=== PATIENT | female | born 1960 | race Asian ===

== ENCOUNTER 2017-01-21 01:29 | Emergency (ER) | payer SELFPAY ==
[2017-01-21 01:51] VITALS: BP 150/97
[2017-01-21 02:11] LABS: APPEARANCE,URINE SLIGHTLY-CLOUDY; BILIRUBIN,URINE NEGATIVE (NEGATIVE); GLUCOSE, URINE NEGATIVE (NEGATIVE); KETONES,URINE NEGATIVE (NEGATIVE); LEUKOCYTE ESTERASE,URINE LARGE (NEGATIVE); NITRITE,URINE NEGATIVE (NEGATIVE); PROTEIN,URINE NEGATIVE (NEGATIVE); URINE SPECIFIC GRAVITY 1.021
[2017-01-21 02:17] LABS: WBC,URINE 50-100 /HPF
[2017-01-21 02:18] LABS: BACTERIA,URINE 3+ /HPF
[2017-01-21] MEDS ORDERED: ONDANSETRON 4 MG TAB.RAPDIS PO ONE (03:20)
[2017-01-21] MEDS ORDERED: OXYCODONE-ACETAMINOPHEN 5-325 MG TABLET PO ONE (03:20)
--- NOTE | 2017-01-21 03:22 | ER Document Report ---
ED Medical Screen (RME) - General Chief Complaint: Flank Pain Stated Complaint: FLANK PAIN Time Seen by Provider: 01/21/17 03:08 Notes: 56-year-old female, chief complaint of left flank pain for the past 3 days, states pain is sharp and radiates around to her left abdomen, she cannot sleep. She denies nausea or vomiting, fever or chills. She does have a history of kidney stones. Only other past medical history reported is anemia and hypertension. She denies injury. TRAVEL OUTSIDE OF THE [place] IN LAST 30 DAYS: No - Related Data Allergies/Adverse Reactions: No Known Allergies Allergy (Unverified 01/21/17 03:08) Past Medical History Renal/ Medical History: Denies: Hx Peritoneal Dialysis Physical Exam - Vital signs Vitals: Temp Pulse Resp BP Pulse Ox 97.8 F 85 16 150/97 H 97 01/21/17 01:50 01/21/17 01:50 01/21/17 01:50 01/21/17 01:50 01/21/17 01:50 - Back Back: CVA tenderness - Left side only Course - Vital Signs Vital signs: Temp Pulse Resp BP Pulse Ox 97.8 F 85 16 150/97 H 97 01/21/17 01:50 01/21/17 01:50 01/21/17 01:50 01/21/17 01:50 01/21/17 01:50 - Laboratory Laboratory results interpreted by me: 01/21/17 01:46 Urine Blood SMALL H Urine Urobilinogen 2.0 H Ur Leukocyte Esterase LARGE H
[2017-01-21 03:45] LABS: ABSOLUTE BASOPHILS # (AUTO) 0.1 10^3/uL (0.0-0.2); ABSOLUTE EOSINOPHILS # (AUTO) 0.2 10^3/uL (0.0-0.6); ABSOLUTE MONOCYTES (AUTO) 0.6 10^3/uL (0.1-1.4); ABSOLUTE NEUT (AUTO) 4.8 10^3/uL (1.7-8.2); EOSINOPHILS % (AUTO) 3.1 % (0-6); HEMATOCRIT 39.5 % (36.0-47.0); HEMOGLOBIN 13.7 g/dL (12.0-15.5); HGB HCT DIFFERENCE 1.6; LYMPHOCYTES % (AUTO) 25.7 % (13-45); MEAN CORPUSCULAR HEMOGLOBIN 31.6 pg (27.0-33.4); MEAN CORPUSCULAR HGB CONC 34.8 g/dL (32.0-36.0); MEAN CORPUSCULAR VOLUME 91 fl (80-97); MONOCYTES % (AUTO) 7.5 % (3-13); RED BLOOD COUNT 4.35 10^6/uL (3.72-5.28); RED CELL DISTRIBUTION WIDTH 12.9 % (11.5-14.0); SEGMENTED NEUTROPHILS % (AUTO) 62.7 % (42-78); WHITE BLOOD COUNT 7.7 10^3/uL (4.0-10.5)
[2017-01-21 04:04] LABS: ALANINE AMINOTRANSFERASE 33 U/L (9-52); ALBUMIN 4.7 g/dL (3.5-5.0); ALKALINE PHOSPHATASE 73 U/L (38-126); ANION GAP 15 (5-19); ASPARTATE AMINO TRANSFERASE 26 U/L (14-36); BILIRUBIN,DIRECT 0.3 mg/dL (0.0-0.4); BILIRUBIN,TOTAL 0.5 mg/dL (0.2-1.3); BLOOD UREA NITROGEN 26 mg/dL (7-20); CARBON DIOXIDE 22 mmol/L (22-30); CHLORIDE 106 mmol/L (98-107); CREATININE RESULT 1.03 mg/dL (0.52-1.25); GLUCOSE 111 mg/dL (75-110); POTASSIUM 3.9 mmol/L (3.6-5.0); TOTAL PROTEIN 8.3 g/dL (6.3-8.2)
--- NOTE | 2017-01-21 04:38 | ER Document Report ---
ED GI/ - General Chief Complaint: Flank Pain Stated Complaint: FLANK PAIN Time Seen by Provider: 01/21/17 03:08 Notes: Patient is a 56-year-old female, chief complaint of left flank pain for the past 3 days, states pain is sharp and radiates around to her left abdomen, she cannot sleep. She denies nausea or vomiting, fever or chills. She does have a history of kidney stones. Only other past medical history reported is anemia and hypertension. She denies injury. TRAVEL OUTSIDE OF THE [place] IN LAST 30 DAYS: No - Related Data Allergies/Adverse Reactions: No Known Allergies Allergy (Unverified 01/21/17 03:08) Past Medical History - General Information source: Patient - Social History Smoking Status: Never Smoker Frequency of alcohol use: None Drug Abuse: None Lives with: Family Family History: Reviewed & Not Pertinent Patient has suicidal ideation: No Patient has homicidal ideation: No - Past Medical History Cardiac Medical History: Reports: Hx Hypertension Renal/ Medical History: Denies: Hx Peritoneal Dialysis - Immunizations Hx Diphtheria, Pertussis, Tetanus Vaccination: Yes Review of Systems - Review of Systems Constitutional: No symptoms reported EENT: No symptoms reported Cardiovascular: No symptoms reported Respiratory: No symptoms reported Gastrointestinal: See HPI Genitourinary: See HPI Female Genitourinary: No symptoms reported Musculoskeletal: No symptoms reported Skin: No symptoms reported Hematologic/Lymphatic: No symptoms reported Neurological/Psychological: No symptoms reported Physical Exam - Vital signs Vitals: Temp Pulse Resp BP Pulse Ox 97.8 F 85 16 150/97 H 97 01/21/17 01:50 01/21/17 01:50 01/21/17 01:50 01/21/17 01:50 01/21/17 01:50 Interpretation: Normal - General General appearance: Appears well, Alert In distress: None - HEENT Head: Normocephalic, Atraumatic Eyes: Normal Pupils: PERRL - Respiratory Respiratory status: No respiratory distress Chest status: Nontender Breath sounds: Normal Chest palpation: Normal - Cardiovascular Rhythm: Regular Heart sounds: Normal auscultation Murmur: No - Abdominal Inspection: Normal Distension: No distension Bowel sounds: Normal Tenderness: Tender - There is tenderness along the mid to lower abdomen on the left side, no guarding, no rebound tenderness, unremarkable examination otherwise Organomegaly: No organomegaly - Back Back: Normal, Nontender. No: Tender, CVA tenderness - Extremities General upper extremity: Normal inspection, Nontender, Normal strength, Normal temperature General lower extremity: Normal inspection, Nontender, Normal strength, Normal temperature - Neurological Neuro grossly intact: Yes Cognition: Normal Orientation: AAOx4 [employer] Coma Scale Eye Opening: Spontaneous [employer] Coma Scale Verbal: Oriented [employer] Coma Scale Motor: Obeys Commands [employer] Coma Scale Total: 15 Speech: Normal Motor strength normal: LUE, RUE, LLE, RLE Sensory: Normal - Psychological Associated symptoms: Normal affect, Normal mood - Skin Skin Temperature: Warm Skin Moisture: Dry Skin Color: Normal Course - Re-evaluation Re-evalutation: Patient with abdominal tenderness in the left abdomen generally, no noted CVA tenderness, she is well-appearing, no fever, no vomiting. No leukocytosis, chemistry unremarkable, urinalysis is concerning with large leukocyte esterase, elevated white blood cells, 3+ bacteria, good sample with only a few squamous epithelials. Culture placed. Concern because of patient's history of kidney stones and radiating pain to her flank. CAT scan was performed as a result. CAT scan showing surprisingly atrophy left kidney with nephrolithiasis and ureterolithiasis at 2 mm on the same side. Fortunately no hydronephrosis. Discussed with patient, asked where she would prefer to have urology care, she states [place]. Called and spoke with Ms. Usama GAN with [facility] at [facility]. She recommends that patient can be discharged at this time, urine culture placed, antibiotics, and calling the office today after 8 AM to establish a very close follow-up either today or tomorrow. I discussed this with patient, she states that she will do this. Instructed her to return to the emergency department if she cannot make it or if she worsens including fever, uncontrolled vomiting, severe pain, etc. Patient states understanding and agreement. - Vital Signs Vital signs: Temp Pulse Resp BP Pulse Ox 97.8 F 85 16 150/97 H 97 01/21/17 01:50 01/21/17 01:50 01/21/17 01:50 01/21/17 01:50 01/21/17 01:50 - Laboratory Result Diagrams: 01/21/17 03:30 01/21/17 03:30 Laboratory results interpreted by me: 01/21/17 01/21/17 01:46 03:30 BUN 26 H Est GFR (Non-Af Amer) 55 L Glucose 111 H Total Protein 8.3 H Urine Blood SMALL H Urine Urobilinogen 2.0 H Ur Leukocyte Esterase LARGE H Discharge - Discharge Clinical Impression: Flank pain, Ureterolithiasis Urinary tract infection Qualifiers: Urinary tract infection type: site unspecified Hematuria presence: without hematuria Qualified Code(s): N39.0 - Urinary tract infection, site not specified Condition: Stable Disposition: HOME, SELF-CARE Additional Instructions: You are passing a 2 mm stone on the left side. Your left kidney shows atrophy ( it is appears to have shrunk). You have a urinary tract infection. Please take the Keflex antibiotics as prescribed, take the pain medication as prescribed if needed, take the nausea medication as prescribed if needed. Please call today after 8 AM to [facility] at [phone], I spoke to Usama najera. Take your disc and labs with you. Return if you worsen in anyway including fever, vomiting, severe pain, or any other concerning symptoms. Prescriptions: Cephalexin Monohydrate [Keflex 500 mg Capsule] 500 mg PO QID #28 capsule Oxycodone HCl/Acetaminophen [Percocet 5-325 mg Tablet] 1 - 2 tab PO Q4H PRN #15 tablet PRN Reason: Promethazine HCl [Phenergan 25 mg Tablet] 1 - 2 tab PO Q6H PRN #15 tablet PRN Reason: Forms: Return to Work
--- NOTE | 2017-01-21 04:51 | RADIOLOGY REPORT (SQ) ---
EXAM DESCRIPTION: CT LTD RENAL STONE PROTOCOL ON CLINICAL HISTORY: 56 years Female, left flank pain, UTI, hx kidney stones COMPARISON: None. TECHNIQUE: This exam was performed according to our departmental dose-optimization program, which includes automated exposure control, adjustment of the mA and/or kV according to patient size and/or use of iterative reconstruction technique. FINDINGS: 1.8 x 0.7 x 0.5 cm left distal ureteral stone within 3 cm of the left ureterovesicular junction no significant hydronephrosis-hydroureter, additional 1.3 cm left renal stone, severe atrophy of the left kidney. Two stones of the right kidney measuring up to 0.3 cm each. Likely benign 1.5 cm right renal cyst, CT density 11 Hounsfield units, not definitively characterized. Unenhanced intra-abdominal and intrapelvic structures including the appendix, and gallbladder appear otherwise grossly unremarkable. No significant free fluid. Intact skeletal structures. IMPRESSION: 1. A 1.8 cm left distal ureteral stone and a 1.3 cm left renal stone. Severe atrophy of the left kidney. No significant hydronephrosis or hydroureter. 2. Two 0.3 cm uncomplicated right renal stones.
[2017-01-21] MEDS ORDERED: NORMAL SALINE 1000 ML 1,000 ML IV ONE (04:53)
[2017-01-21] MEDS ORDERED: CEFTRIAXONE 1 GM/D5W RTU 1 GM/50 ML RTUPB IV ONE (04:53)
== END 2017-01-21 07:14 | disposition home or self-care (01) ==
LOC: ER 01:29
DX: N20.1 Calculus of ureter (principal); N39.0 Urinary tract infection, site not specified; R10.9 Unspecified abdominal pain
CPT/HCPCS: 99284; 96365; 36415; 87086; 85025; 87088; 80053; 81001; 87186; 76380; S0119; J7030; J0696

== ENCOUNTER 2020-01-28 11:34 | Emergency (ER) | payer OTHER ==
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
[2020-01-28 14:50] VITALS: BP 185/108
== END 2020-01-28 14:52 | disposition home or self-care (01) ==
LOC: ER 11:34
DX: S43.402A Unspecified sprain of left shoulder joint, initial encounter (principal); S13.9XXA Sprain of joints and ligaments of unspecified parts of neck, initial encounter; R51.9 Headache, unspecified; Y04.8XXA Assault by other bodily force, initial encounter; Y92.59 Other trade areas as the place of occurrence of the external cause; Y99.0 Civilian activity done for income or pay; M50.30 Other cervical disc degeneration, unspecified cervical region; M47.812 Spondylosis without myelopathy or radiculopathy, cervical region; R25.2 Cramp and spasm; I10 Essential (primary) hypertension
CPT/HCPCS: 70450; 72040; 99284

== ENCOUNTER 2020-02-02 16:57 | Emergency (ER) | payer OTHER ==
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
--- NOTE | 2020-02-02 17:26 | RADIOLOGY REPORT (SQ) ---
EXAM DESCRIPTION: CT HEAD WITHOUT IMAGES COMPLETED DATE/TIME: 02/02/2020 2:12 pm REASON FOR STUDY: STROKE PROTOCOL COMPARISON: 01/28/2020 TECHNIQUE: Axial images acquired through the brain without intravenous contrast. Images reviewed wi th bone, brain and subdural windows. Additional sagittal and coronal reconstructions were generated. Images stored on PACS. All CT scanners at this facility use dose modulation, iterative reconstruction, and/or weight based d osing when appropriate to reduce radiation dose to as low as reasonably achievable (ALARA). [facility]: Dose Right [facility]: CareDose [facility]: Dose Right [facility]: Teradose 4D [facility]: Mpax RADIATION DOSE: DL P 1,097mGy. LIMITATIONS: None. FINDINGS: VENTRICLES: Normal size and contour. CEREBRUM: No masses. No hemorrhage. No midline shift. No evidence for acute infarction. Few scatte red areas of low density in the white matter most likely chronic small vessel ischemic changes. CEREBELLUM: No masses. No hemorrhage. No alteration of density. No evidence for acute infarction. EXTRAAXIAL SPACES: No fluid collections. No masses. Empty sella. ORBITS AND GLOBE: No intra- or extraconal masses. Normal contour of globe without masses. CALVARIUM: No fracture. PARANASAL SINUSES: No fluid or mucosal thickening. SOFT TISSUES: No mass or hematoma. OTHER: No other significant finding. IMPRESSION: 1. No acute intracranial abnormality on noncontrast CT. 2. 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 EVIDENCE OF ACUTE STROKE: NO. COMMENT: This report was called to JACOB HUMPHREYS MD at14:19 [place] time on 02/02/2020. Quality ID # [id number]: Final reports with documentation of one or more dose reduction techniques (e.g., Au tomated exposure control, adjustment of the mA and/or kV according to patient size, use of iterative reconstruction technique) TECHNICAL DOCUMENTATION: JOB ID: [id number] 2010 [employer]- All Rights Reserved Reading location - IP/workstation name: [email or web address]
[2020-02-02] MEDS ORDERED: ENALAPRILAT DIHYDRATE INJ/PF 2.5 MG/2 ML SDV IV ONE (17:34)
[2020-02-02] MEDS ORDERED: KETOROLAC TROMETHAMINE INJ/PF 30 MG/1 ML SDV IV ONE (17:34)
--- NOTE | 2020-02-02 17:34 | RADIOLOGY REPORT (SQ) ---
EXAM DESCRIPTION: CHEST SINGLE VIEW IMAGES COMPLETED DATE/TIME: 02/02/2020 5:14 pm REASON FOR STUDY: STROKE ALERT COMPARISON: 04/24/2010 EXAM PARAMETERS: NUMBER OF VIEWS: One view. TECHNIQUE: Single frontal radiographic view of the chest acquired. RADIATION DOSE: NA LIMITATIONS: None. FINDINGS: LUNGS AND PLEURA: No opacities, masses or pneumothorax. No pleural effusion. MEDIASTINUM AND HILAR STRUCTURES: No masses. Contour normal. HEART AND VASCULAR STRUCTURES: Heart normal in size. Normal vasculature. BONES: No acute findings. HARDWARE: None in the chest. OTHER: No other significant finding. IMPRESSION: NO ACUTE RADIOGRAPHIC FINDING IN THE CHEST. TECHNICAL DOCUMENTATION: JOB ID: [id number] 2010 [employer]- All Rights Reserved Reading location - IP/workstation name: [email or web address]
[2020-02-02 19:09] VITALS: BP 183/99
--- NOTE | 2020-02-03 08:56 | EKG REPORT ---
SEVERITY:- ABNORMAL ECG - SINUS RHYTHM PROBABLE LEFT ATRIAL ABNORMALITY LVH WITH SECONDARY REPOLARIZATION ABNORMALITY : Confirmed by: Glenis Luong MD 03-Feb-2020 08:56:14
== END 2020-02-02 19:28 | disposition home or self-care (01) ==
LOC: ER 16:57
DX: I10 Essential (primary) hypertension (principal); R51.9 Headache, unspecified; S40.021A Contusion of right upper arm, initial encounter; Y08.89XA Assault by other specified means, initial encounter; R42 Dizziness and giddiness; R11.0 Nausea; F17.210 Nicotine dependence, cigarettes, uncomplicated; Z86.69 Personal history of other diseases of the nervous system and sense organs
CPT/HCPCS: 93005; 99285; 96374; 96375; 71045; 70450; 93010; J3490; J1885